=== PATIENT | female | born 1935 | race Caucasian/White ===

== ENCOUNTER 2017-02-25 11:38 | Emergency (ER) | payer MEDICARE, BC ==
--- NOTE | 2017-02-25 12:23 | EDM.PDOC ---
ED HPI GENERAL MEDICAL PROBLEM - General Chief Complaint: Neurological Problem Stated Complaint: LIGHT HEADED SINCE YESTERDAY Time Seen by Provider: 02/25/17 12:23 Source of Information: Reports: Patient History Limitations: Reports: No Limitations - History of Present Illness INITIAL COMMENTS - FREE TEXT/NARRATIVE: Patient is a 81 y/o female who presents to the E.D. complaining of intermittent mild dizziness. States she noticed the dizziness approx 1730 yesterday. States she noticed it with standing that would quickly resolve after a few minutes. States she slept well last night and upon awakening this a.m. the dizziness had come back. States it continues to come and go with no increase with turning of head from left to right or closing her eyes. States she has no prior hx of similar symptoms. States she is still getting over a cold that started two weeks ago. States she has sinus congestion that is slowly improving. Denies vision changes, fever/chills, cp, sob, palpitations, n/v, dysuria, weakness, n/t , HANSON, or other neurological complaints. Patient has no past medical history and is only taking vitamins. Of note patient is hard of hearing requiring bilateral hearing aids. She has history of recurrent UTI's. States last UTI was three years ago. 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: Reports: Other (see below) (none stated) - Related Data Allergies Allergy/AdvReac Type Severity Reaction Status Date / Time sulfamethoxazole Allergy Hives Verified 02/25/17 11:50 [From ] trimethoprim [From ] Allergy Hives Verified 02/25/17 11:50 Home Meds: Home Meds B2/Vit A,C & E/Lut/Zeaxanth/Mn [Icaps] 1 each PO BID 02/25/17 [History] Calcium Phosphate Trib/Vit D3 [Caltrate Gummy Bites] 1 tab PO DAILY 02/25/17 [ History] Past Medical History HEENT History: Reports: Hard of Hearing Genitourinary History: Reports: UTI, Recurrent [employer]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: - Past Surgical History GI Surgical History: Reports: Appendectomy, Cholecystectomy Female Surgical History: Reports: Hysterectomy Social & Family History - Family History Family Medical History: Noncontributory - Tobacco Use Smoking Status *Q: Never Smoker - Caffeine Use Caffeine Use: Reports: Coffee, Soda - Recreational Drug Use Recreational Drug Use: No ED ROS GENERAL - Review of Systems Review Of Systems: See Below Constitutional: Denies: Fever, Chills, Decreased Appetite HEENT: Denies: Vision Change Respiratory: Denies: Shortness of Breath, Wheezing, Pleuritic Chest Pain, Cough , Sputum, Hemoptysis Cardiovascular: Denies: Chest Pain, Dyspnea on Exertion, Lightheadedness, Orthopnea, Palpitations, PND, Syncope GI/Abdominal: Denies: Abdominal Pain, Black Stool, Constipation, Diarrhea, Hematemesis, Melena, Nausea, Vomiting : Denies: Dysuria, Flank Pain, Frequency, Hematuria, Urgency Musculoskeletal: Reports: No Symptoms Neurological: Reports: Dizziness. Denies: Confusion, Headache, Numbness, Syncope, Tingling, Difficulty Walking, Weakness, Gait Disturbance ED EXAM, NEURO - Physical Exam Exam: See Below Exam Limited By: No Limitations General Appearance: Alert, WD/WN, No Apparent Distress Eye Exam: Bilateral Eye: EOMI, Nystagmus (no vertical or horizontal), PERRL Ears: Normal External Exam, Normal Canal (right), Normal TMs (right and left), Hearing Loss (bilaterally, hearing aids in place), Other (left TM was obscurred by cerumen. ) Nose: Normal Inspection Throat/Mouth: Normal Inspection, Normal Oropharynx, Normal Voice, No Airway Compromise Head Exam: Atraumatic, Normocephalic, Other (no worsening of dizziness with turning head left/right. ) Neck: Normal Inspection, Supple, Non-Tender, Full Range of Motion. No: Lymphadenopathy (L), Lymphadenopathy (R) Respiratory/Chest: No Respiratory Distress, Lungs Clear, Normal Breath Sounds Cardiovascular: Normal Peripheral Pulses, Regular Rate, Rhythm GI/Abdominal: Normal Bowel Sounds, Soft, Non-Tender, No Organomegaly, No Distention Neurological: Alert, Normal Mood/Affect, Normal Dorsiflexion, CN II-XII Intact, Normal Plantar Flexion, Normal Gait, No Motor/Sensory Deficits, Oriented x 3, Other (cerebellar function intact: finger to nose, heal to goldberg. No facial droop, weakness (upper/lower ext), pronator drift) Back Exam: Normal Inspection, Full Range of Motion Extremities: Normal Inspection, Normal Range of Motion, Non-Tender, No Pedal Edema, Normal Capillary Refill Psychiatric: Normal Affect, Normal Mood Skin Exam: Warm, Dry, Intact, Normal Color, No Rash Course - Vital Signs Last Recorded V/S: Last Vital Signs Temp 98.4 F 02/25/17 11:45 Pulse 85 02/25/17 11:45 Resp 16 02/25/17 11:45 BP Pulse Ox 99 02/25/17 11:45 - Orders/Labs/Meds Orders: Active Orders 24 hr Category Date Time Status Ear Irrigation [RC] ASDIRECTED Care 02/25/17 12:42 Inactive - Re-Assessments/Exams Free Text/Narrative Re-Assessment/Exam: 02/25/17 12:43 Examination did not elicit any concerning findings. On standing patient was very stable. Dizziness was mild. No worsening with turning of head left to right. Left ear canal was obstructed. Will order ear canal irrigation and recheck of BP. 02/25/17 13:32 Ear irrigation has not been completed due to nursing staff busy with other sicker patients. I utilized speculum and cleaned excess cerumen from canal. Dizziness has resolved. Blood pressure 155/79. Suspect cause of dizziness maybe associated with elevated BP and/or recent URI. Patient is ready to be discharged home. Will prepare discharge paperwork. Departure - Departure Time of Disposition: 13:40 Disposition: Home, Self-Care 01 Condition: good Clinical Impression: Dizziness, nonspecific - Discharge Information Instructions: Dizziness, [id number] Referrals: Nile Chacko MD [Primary Care Provider] - Forms: ED Department Discharge Additional Instructions: Unclear etiology of intermittent mild dizziness. This maybe associated with elevations of BP and/or recent URI. Thus will have you monitor your BP twice daily and keep daily log. See your PCP in one week for reevaluation. Bring your BP Log and BP machine with you to the appt as well. Suggest with body position changes taking your time allowing body to normalize. Push the fluids. Cleanse ear canals with warm water and hyrodrogen peroxide to loosen cerumen collections. Return to the E.D. if you develop any new or worsening symptoms. - My Orders Last 24 Hours: My Active Orders 02/25/17 12:42 Ear Irrigation [RC] ASDIRECTED - Assessment/Plan Last 24 Hours: My Active Orders 02/25/17 12:42 Ear Irrigation [RC] ASDIRECTED
== END 2017-02-25 13:50 | disposition home or self-care (01) ==
LOC: JD.ED 11:38
DX: R42 Dizziness and giddiness (principal); H61.22 Impacted cerumen, left ear; Z88.2 Allergy status to sulfonamides; Z88.8 Allergy status to other drugs, medicaments and biological substances; Z87.440 Personal history of urinary (tract) infections; Z90.49 Acquired absence of other specified parts of digestive tract; Z90.710 Acquired absence of both cervix and uterus
CPT/HCPCS: 69210; 99282-25; 99284-25

== ENCOUNTER 2023-08-16 16:09 | Emergency (ER) | payer MEDICARE, BC ==
[2023-08-16 19:03] VITALS: BP 131/87; PULSE 88
== END 2023-08-16 18:58 | disposition home or self-care (01) ==
LOC: JD.ED 16:09
DX: M79.89 Other specified soft tissue disorders (principal); M54.50 Low back pain, unspecified; Z88.2 Allergy status to sulfonamides
CPT/HCPCS: 93971-26-LT; 93971-LT; 99283

== ENCOUNTER 2024-03-08 09:13 | Day surgery (SDC) | payer MEDICARE, BC ==
[~2024-03-08 09:13] MED LIST: Sodium Chloride 0.9% 10 ML Syringe FLUSH PRN; Sodium Chloride 0.9% 10 ML Syringe FLUSH SCH
[2024-03-08] MEDS ORDERED: ceFAZolin 2 GM Vial ONE (09:15)
[2024-03-08] MEDS ORDERED: Ondansetron 4 MG/2 ML SDV ONE (09:16)
[2024-03-08] MEDS ORDERED: Propofol 200 MG/20 ML SDV ONE ×3 (09:24→12:26)
[2024-03-08] MEDS: Lactated Ringers 1,000 ML IV SCH (10:03)
[2024-03-08] MEDS ORDERED: fentaNYL 100 MCG/2 ML SDV IVPUSH PRN (10:19)
[2024-03-08] MEDS ORDERED: Ondansetron 4 MG/2 ML SDV IVPUSH PRN (10:19)
[2024-03-08] MEDS ORDERED: HYDROmorphone 0.5 MG/0.5 ML Syringe IVPUSH PRN (10:19)
[2024-03-08] MEDS ORDERED: Dexamethasone 4 MG/ML 5 ML MDV ONE (11:30)
[2024-03-08] MEDS ORDERED: Phenylephrine 1% 10 MG/ML SDV ONE (11:45)
[2024-03-08] MEDS: Morphine 8 MG, EPINEPHrine 0.3 MG, Cefuroxime 750 MG, Ketorolac 30 MG, Sodium Chloride ... PRN (12:35)
[2024-03-08] MEDS: Tranexamic Acid 1,000 MG/10 ML Vial ONE (12:41)
[2024-03-08] MEDS: Vancomycin 1 GM SDV ONE (12:41)
[2024-03-08] MEDS ORDERED: Ropivacaine 0.5% 5 MG/ML 30 ML SDV ONE (13:17)
[2024-03-08] MEDS ORDERED: Acetaminophen/HYDROcodone 325-5 MG Tab PO PRN (14:25)
[2024-03-08 16:57] VITALS: BP 111/57; PULSE 80
== END 2024-03-08 16:50 | disposition home or self-care (01) ==
LOC: JD.SDS 09:13
PROVIDERS: ATTEND Orthopaedic Surgery
DX: M17.12 Unilateral primary osteoarthritis, left knee (principal); I10 Essential (primary) hypertension; M81.0 Age-related osteoporosis without current pathological fracture; Z90.49 Acquired absence of other specified parts of digestive tract; Z79.899 Other long term (current) drug therapy
CPT/HCPCS: 0055T; 27447; 73560; 97110; 97161; C1713; C1776; J0171; J0690; J0697; J1100; J1885; J2270; J2371; J2405; J2704; J2795; J3370; J7120; 01402; 99100; J3490